=== PATIENT | male | born 1985 | race Hispanic/Latino ===

== ENCOUNTER 2016-08-31 14:33 | Emergency (ER) | payer BC ==
[2016-08-31 14:42] VITALS: BP 107/67; PULSE 90; RESP 18; TEMP 97.8; O2SAT 100
[2016-08-31] MEDS ORDERED: Lidocaine 2% w Epi 1:100,000 Inj IJ ONE (14:45)
[2016-08-31] MEDS ORDERED: TDAP Vaccine 0.5 mL Syr IM ONE (14:48)
[2016-08-31] MEDS ORDERED: Lidocaine/Epi 1% 1:100000 20 ML IJ ONE (14:50)
--- NOTE | 2016-08-31 14:52 | ED PDOC ---
Lower Extremity Pain/Injury Time Seen by Provider: 08/31/16 14:50 Chief Complaint (Nursing): Abnormal Skin Integrity Chief Complaint (Provider): Laceration to left lower extremity History Per: Patient History/Exam Limitations: no limitations Onset/Duration Of Symptoms: Mins Current Symptoms Are (Timing): Still Present Severity: Moderate Additional History Per: Patient Additional Complaint(s): The pt is a 31yo male, presents ot ED for evaluation of laceration sustained above left knee while attempting to take out garbage [employer]. Pt reports he was cut by an unknown sharp object. Pt states his tetanus is not up to date. Denies any other medical complaints. Past Medical History Reviewed: Historical Data, Nursing Documentation, Vital Signs Vital Signs: Last Vital Signs Temp 97.8 F 08/31/16 14:38 Pulse 90 08/31/16 14:38 Resp 18 08/31/16 14:38 BP 107/67 08/31/16 14:38 Pulse Ox 100 08/31/16 14:38 - Medical History PMH: No Chronic Diseases - Surgical History Surgical History: No Surg Hx - Family History Family History: States: Unknown Family Hx - Home Medications Home Medications: Ambulatory Orders Medication Instructions Recorded Clindamycin [Cleocin] 1 tab PO QID #20 cap 08/31/16 - Allergies Allergies/Adverse Reactions: Allergies Allergy/AdvReac Type Severity Reaction Status Date / Time Penicillins Allergy RASH Verified 08/31/16 14:38 Review of Systems ROS Statement: Except As Marked, All Systems Reviewed And Found Negative Skin: Positive for: Other (laceration above left knee) Physical Exam - Reviewed Nursing Documentation Reviewed: Yes Vital Signs Reviewed: Yes - Physical Exam Appears: Positive for: Well, Non-toxic, No Acute Distress Head Exam: Positive for: ATRAUMATIC, NORMAL INSPECTION, NORMOCEPHALIC Skin: Positive for: Normal Color Neck: Positive for: Normal Cardiovascular/Chest: Positive for: Regular Rate, Rhythm Respiratory: Negative for: Respiratory Distress Extremity: Positive for: Other (3cm linear laceration above left knee. no active bleeding.). Negative for: Deformity, Swelling Neurologic/Psych: Positive for: Alert, Oriented - ECG O2 Sat by Pulse Oximetry: 100 Medical Decision Making Medical Decision Making: Time: 1453 Impression: 3.0 cm laceration above left knee Plan: -- See procedure note for laceration repair -- TDAP Booster -- Clindamycin 300 mg PO --Reassess Scribe Attestation: All records were documented by Norma Paiz, acting as a Scribe for WILL Edwards. Provider Scribe Attestation: All medical record entries made by the Scribe were at my direction and personally dictated by me. I have reviewed the chart and agree that the record accurately reflects my personal performance of the history, physical exam, medical decision making, and the department course for this patient. I have also personally directed, reviewed, and agree with the discharge instructions and disposition. Procedures - Time-Out Type of Procedure: Laceration repair Site of Procedure: Above left knee Correct Patient (with visual ID + MR# on ID Band): Yes Correct Procedure: Yes PA/Tech: Darcy Emerson - Laceration/Wound Repair Above left knee Wound Length (cm): 2 Wound's Depth, Shape: superficial, linear Wound Explored: clean Betadine Prep?: Yes Anesthesia: Lidocaine w/ Epi Wound Repaired With: Sutures Suture Size/Type: 4:0, proline Number of Sutures: 5 (simple interrupted) Wound Complexity: Simple Sterile Dressing Applied?: Yes Progress: Pt tolerated procedure well. Disposition - Clinical Impression Clinical Impression: Laceration - Patient ED Disposition Is Patient to be Admitted: No - Disposition Disposition: Routine/Home Disposition Time: 15:30 Condition: FAIR Additional Instructions: F/U WITH PMD OR RETURN TO ED IN 10-14 DAYS FOR REMOVAL OF SUTURES Prescriptions: Clindamycin [Cleocin] 1 tab PO QID #20 cap Instructions: Care For Your Stitches (ED), Laceration (ED) Forms: [facility] ED School/Work Excuse
== END 2016-08-31 15:38 | disposition home or self-care (01) ==
LOC: H.ER 14:33
DX: S81.812A Laceration without foreign body, left lower leg, initial encounter (principal); W25.XXXA Contact with sharp glass, initial encounter; Y92.008 Other place in unspecified non-institutional (private) residence as the place of occurrence of the external cause; Z88.0 Allergy status to penicillin